=== PATIENT | female | born 1980 | race Caucasian/White ===

== ENCOUNTER → 2016-10-07 | Outpatient (CLI) | payer OTHER | LOC: BHSO 13:46 | DX: F33.1 Major depressive disorder, recurrent, moderate (principal) | CPT/HCPCS: 90791-AI ==

== ENCOUNTER → 2016-11-21 | Outpatient (CLI) | payer OTHER | LOC: BHSO 12:45 | DX: F33.1 Major depressive disorder, recurrent, moderate (principal) ==

== ENCOUNTER → 2017-01-26 | Outpatient (CLI) | payer OTHER | LOC: BHSO 10:35 | DX: F33.1 Major depressive disorder, recurrent, moderate (principal) ==

== ENCOUNTER → 2017-05-22 | Outpatient (CLI) | payer OTHER | LOC: BHSO 10:47 | DX: F41.1 Generalized anxiety disorder (principal) ==

== ENCOUNTER → 2017-08-17 | Outpatient (CLI) | payer OTHER | LOC: BHSO 15:04 | DX: F41.1 Generalized anxiety disorder (principal) | CPT/HCPCS: G0463 ==

== ENCOUNTER → 2017-10-23 | Outpatient (CLI) | payer OTHER | LOC: BHSO 11:18 | DX: F33.41 Major depressive disorder, recurrent, in partial remission (principal) | CPT/HCPCS: G0463 ==

== ENCOUNTER → 2018-04-23 | Outpatient (CLI) | payer OTHER | LOC: BHSO 10:33 | DX: F41.1 Generalized anxiety disorder (principal) | CPT/HCPCS: G0463 ==

== ENCOUNTER → 2018-12-29 | Outpatient (CLI) | payer OTHER | LOC: BHSO 10:18 | DX: F33.41 Major depressive disorder, recurrent, in partial remission (principal) | CPT/HCPCS: G0463 ==

== ENCOUNTER → 2019-06-23 | Outpatient (CLI) | payer OTHER | LOC: BHSO 10:55 | DX: F33.41 Major depressive disorder, recurrent, in partial remission (principal) | CPT/HCPCS: G0463 ==

== ENCOUNTER → 2020-01-27 | Outpatient (CLI) | payer OTHER | LOC: BHSO 15:35 | DX: F41.1 Generalized anxiety disorder (principal) | CPT/HCPCS: G0463 ==

== ENCOUNTER → 2020-03-30 | Outpatient (CLI) | payer OTHER | LOC: BHSO 14:39 | DX: F33.41 Major depressive disorder, recurrent, in partial remission (principal) | CPT/HCPCS: G0463 ==

== ENCOUNTER → 2020-06-15 | Outpatient (CLI) | payer OTHER | LOC: BHSO 13:38 | DX: F33.1 Major depressive disorder, recurrent, moderate (principal) | CPT/HCPCS: G0463 ==